=== PATIENT | male | born 1955 | race Caucasian/White ===

== ENCOUNTER → 2020-10-23 | Outpatient (CLI) | payer OTHER ==
[~2020-10-23] MED LIST: ACTOS45 MG PO; CLOBEX TP; FEXOFENADINE180 MG PO; FLUOXETINE20 MG PO; LIPITOR20 MG PO; LISINOPRIL20 MG PO; LOPRESSOR100 MG PO; METFORMIN500 MG PO; OMEGA 31000 MG PO; TRICOR145 MG PO; VICODIN 5/500 505 MG PO; VICTOZA6 MG/ML PO; [UNRECOGNIZED DRUG - OTHER] PO
[2020-10-23 13:49] LABS: ALBUMIN 3.3 gm/dl (3.1-4.5); BUN 32 mg/dl (7-24); CHLORIDE 92 mmol/L (98-107); CREATININE 1.37 mg/dL (0.70-1.30); POTASSIUM 4.5 mmol/L (3.5-5.1); SODIUM 129 mmol/L (136-145)
== END | disposition home or self-care (01) ==
LOC: LAB 13:14
PROVIDERS: ATTEND Internal Medicine
DX: E87.1 Hypo-osmolality and hyponatremia (principal)

== ENCOUNTER → 2022-01-15 | Outpatient (CLI) | payer MEDICARE ==
[~2022-01-15] MED LIST changes: +AMARYL4 MG PO; +ASPIRIN CHEWABL81 MG PO; +FLUOXETINE HCL40 MG PO; +LISINOPRIL-HCT1 EACH PO; -LOPRESSOR100 MG PO; +LOPRESSOR50 M1 PO; +METFORMIN HYD1000 MG PO; +NORVASC10 MG PO; +OMEPRAZOLE20 M2 PO; +XARELTO20 M1 PO
== END | disposition home or self-care (01) ==
LOC: COVID19 15:03
PROVIDERS: ATTEND Family Medicine
DX: Z20.822 Contact with and (suspected) exposure to COVID-19 (principal)

== ENCOUNTER 2022-01-17 05:09 | Inpatient (IN) | payer MEDICARE ==
[2022-01-17] VITALS (10 sets, daily range): BP systolic 126–179; BP diastolic 43–89
[~2022-01-17] VITALS: Ht 180.3 cm; Wt 176.0 kg
[~2022-01-17 05:09] MED LIST changes: -AMARYL4 MG PO; -ASPIRIN CHEWABL81 MG PO; -FLUOXETINE HCL40 MG PO; -LISINOPRIL-HCT1 EACH PO; -METFORMIN HYD1000 MG PO; -NORVASC10 MG PO; -OMEPRAZOLE20 M2 PO; -XARELTO20 M1 PO
[2022-01-17 05:56] LABS: BASO % 0.2 % (0.0-1.0); HEMATOCRIT 41.4 % (42.0-52.0); LYMPH # 0.3 10*3/uL (1.3-4.4); LYMPH % 3.9 % (27.0-41.0); MEAN CELL VOLUME 94.7 fl (80.0-94.0); MEAN CORPUSCULAR HGB 32.5 pg (27.0-31.0); MEAN CORPUSCULAR HGB CONC 34.3 g/dl (33.0-37.0); MEAN PLATELET VOLUME 10.9 fl (9.6-12.3); MONO # 0.6 10*3/uL (0.1-1.0); MONO % 7.3 % (3.0-9.0); NEUT # 7.3 10*3/uL (2.3-7.9); NEUT % 87.2 % (47.0-73.0); PLATELET COUNT AUTOMATED 191 10*3/uL (130-400); RED BLOOD COUNT 4.37 10*6/uL (4.50-5.90); WHITE BLOOD COUNT 8.4 10*3/uL (4.8-10.8)
[2022-01-17 06:00] LABS: ALKALINE PHOSPHATASE 108 U/L (45-117); BUN 9 mg/dl (7-24); CHLORIDE 97 mmol/L (98-107); CREATININE 1.31 mg/dL (0.70-1.30); LIPASE 161 U/L (73-393); SGOT/AST 52 IU/L (3-35); SGPT/ALT 109 U/L (12-78); SODIUM 130 mmol/L (136-145); TOTAL PROTEIN 7.6 gm/dL (6.4-8.2)
[2022-01-17 06:04] LABS: ETHYL ALCOHOL < 3.0 mg/dl (<3)
[2022-01-17 06:21] LABS: INTERNATIONAL NORM RATIO 1.1 (2.0-3.5)
[2022-01-17] MEDS ORDERED: OMEPRAZOLE20 M2 PO (06:28)
[2022-01-17] MEDS ORDERED: FLUOXETINE HCL40 MG PO (06:29)
[2022-01-17] MEDS ORDERED: NORVASC10 MG PO (06:29)
[2022-01-17] MEDS ORDERED: AMARYL4 MG PO (06:30)
[2022-01-17] MEDS ORDERED: ASPIRIN CHEWABL81 MG PO (06:30)
[2022-01-17] MEDS ORDERED: LISINOPRIL-HCT1 EACH PO (06:31)
[2022-01-17] MEDS ORDERED: METFORMIN HYD1000 MG PO (06:31)
[2022-01-17 07:28] LABS: CPK 246 U/L (39-308)
[2022-01-17 08:10] LABS: BILIRUBIN Negative (Negative); BLOOD 2+ (Negative); CLARITY Clear (Clear); COLOR Yellow (Yellow); GLUCOSE 2+ (Negative); KETONE 1+ (Negative); LEUKO ESTERASE Negative (Negative); NITRITE Negative (Negative); PH 6.5 (4.5-8.0); SPECIFIC GRAVITY 1.015 (1.001-1.030)
[2022-01-17 08:18] LABS: URINE AMPHETAMINES < 1000 (1000ng/ml); URINE BARBITURATES < 200 (200ng/ml); URINE BENZODIAZEPINES < 200 (200ng/ml); URINE CANNABINOIDS (THC) > 50 (50ng/ml); URINE COCAINE < 300 (300ng/ml); URINE METHADONE < 300 (300ng/ml); URINE OPIATES < 300 (300ng/ml)
[2022-01-17 08:22] LABS: HYALINE CAST 0-2; WBC 0-2 wbc/hpf (0-5); YEAST TRACE
[2022-01-17 08:23] LABS: URINE PHENCYCLIDINE < 25 (25ng/ml)
[2022-01-17 09:03] LABS: ABG BASE EXCESS 1.7 mmol/L (-2.0-2.0); ARTERIAL BLOOD GAS PH 7.397 (7.35-7.45); ARTERIAL BLOOD GAS PO2 234.7 (80-90)
[2022-01-17 17:34] LABS: BILIRUBIN Negative (Negative); BLOOD Negative (Negative); CLARITY Clear (Clear); COLOR Dark Yellow (Yellow); GLUCOSE Negative (Negative); KETONE 1+ (Negative); LEUKO ESTERASE Negative (Negative); NITRITE Negative (Negative); SPECIFIC GRAVITY >= 1.030 (1.001-1.030)
[2022-01-17 17:47] LABS: RBC 0-2 rbc/hpf (0-2); WBC 0-2 wbc/hpf (0-5)
[2022-01-17 18:23] LABS: BUN 9 mg/dl (7-24); CHLORIDE 98 mmol/L (98-107); CREATININE 1.05 mg/dL (0.70-1.30); POTASSIUM 3.1 mmol/L (3.5-5.1); SODIUM 135 mmol/L (136-145)
[2022-01-17 21:41] LABS: ALKALINE PHOSPHATASE 76 U/L (45-117); BUN 10 mg/dl (7-24); CHLORIDE 104 mmol/L (98-107); CREATININE 1.12 mg/dL (0.70-1.30); LIPASE 103 U/L (73-393); POTASSIUM 2.8 mmol/L (3.5-5.1); SGOT/AST 39 IU/L (3-35); SGPT/ALT 72 U/L (12-78); SODIUM 138 mmol/L (136-145)
[2022-01-18] VITALS (14 sets, daily range): BP systolic 89–161; BP diastolic 49–96
[2022-01-18 02:18] LABS: ALKALINE PHOSPHATASE 75 U/L (45-117); BUN 10 mg/dl (7-24); CHLORIDE 106 mmol/L (98-107); CREATININE 1.16 mg/dL (0.70-1.30); SGOT/AST 43 IU/L (3-35); SGPT/ALT 68 U/L (12-78); SODIUM 136 mmol/L (136-145)
[2022-01-18 02:19] LABS: POTASSIUM 4.1 mmol/L (3.5-5.1)
[2022-01-18 06:20] LABS: BASO % 0.5 % (0.0-1.0); EOS # 0.2 10*3/uL (0.0-0.4); HEMATOCRIT 35.9 % (42.0-52.0); LYMPH # 0.5 10*3/uL (1.3-4.4); MEAN CELL VOLUME 97.6 fl (80.0-94.0); MEAN CORPUSCULAR HGB 32.3 pg (27.0-31.0); MEAN CORPUSCULAR HGB CONC 33.1 g/dl (33.0-37.0); MEAN PLATELET VOLUME 11.1 fl (9.6-12.3); MONO # 0.6 10*3/uL (0.1-1.0); MONO % 9.4 % (3.0-9.0); NEUT # 4.7 10*3/uL (2.3-7.9); NEUT % 78.9 % (47.0-73.0); PLATELET COUNT AUTOMATED 139 10*3/uL (130-400); RED BLOOD COUNT 3.68 10*6/uL (4.50-5.90); RED CELL DISTRI WIDTH 12.4 % (0-14.5)
[2022-01-18 06:29] LABS: BUN 11 mg/dl (7-24); CHLORIDE 106 mmol/L (98-107); POTASSIUM 3.2 mmol/L (3.5-5.1); SODIUM 137 mmol/L (136-145)
[2022-01-18 06:39] LABS: ALKALINE PHOSPHATASE 69 U/L (45-117); CHOLESTEROL 110 mg/dL (<200); CREATININE 1.12 mg/dL (0.70-1.30); FREE T4 1.05 ng/dl (0.76-1.46); LDL CHOLESTEROL 53 mg/dL (9-159); SGOT/AST 37 IU/L (3-35); SGPT/ALT 63 U/L (12-78); THYROID STIM HORMONE (HS) 0.812 uIU/ml (0.358-4.75); TOTAL PROTEIN 5.6 gm/dL (6.4-8.2); TRIGLYCERIDES 115 mg/dl (<150)
[2022-01-18 11:46] LABS: ABG BASE EXCESS -4.4 mmol/L (-2.0-2.0); ARTERIAL BLOOD GAS PH 7.358 (7.35-7.45); ARTERIAL BLOOD GAS PO2 125.4 (80-90)
[2022-01-18] MEDS ORDERED: XARELTO20 M1 PO (17:52)
== END 2022-01-18 23:53 | disposition short-term general hospital (02) | DRG 871 ==
LOC: ED 05:09 → EDHOLD 06:28 → ICCU 08:00
PROVIDERS: Emergency Medicine; Internal Medicine; Student in an Organized Health Care Education/Training Program; ADMIT Family Medicine; ATTEND Family Medicine
PROC: 0BH17EZ Insertion of Endotracheal Airway into Trachea, Via Natural or Artificial Opening (ICD-10-PCS; principal; 2022-01-17)
PROC: 5A1945Z Respiratory Ventilation, 24-96 Consecutive Hours (ICD-10-PCS; 2022-01-17)
PROC: 02HV33Z Insertion of Infusion Device into Superior Vena Cava, Percutaneous Approach (ICD-10-PCS; 2022-01-17)
PROC: B548ZZA Ultrasonography of Superior Vena Cava, Guidance (ICD-10-PCS; 2022-01-17)
DX: A41.9 Sepsis, unspecified organism (principal); G93.41 Metabolic encephalopathy; N17.0 Acute kidney failure with tubular necrosis; G04.90 Encephalitis and encephalomyelitis, unspecified; J18.9 Pneumonia, unspecified organism; J96.00 Acute respiratory failure, unspecified whether with hypoxia or hypercapnia; F10.231 Alcohol dependence with withdrawal delirium; E87.1 Hypo-osmolality and hyponatremia; J98.11 Atelectasis; E78.5 Hyperlipidemia, unspecified; K21.9 Gastro-esophageal reflux disease without esophagitis; E87.6 Hypokalemia; E11.65 Type 2 diabetes mellitus with hyperglycemia; I50.9 Heart failure, unspecified; I11.0 Hypertensive heart disease with heart failure; J43.9 Emphysema, unspecified; K76.0 Fatty (change of) liver, not elsewhere classified; I48.91 Unspecified atrial fibrillation; Z90.49 Acquired absence of other specified parts of digestive tract; Z79.82 Long term (current) use of aspirin; Z79.899 Other long term (current) drug therapy

== ENCOUNTER 2023-12-11 17:43 | Emergency (ER) | payer MEDICARE ==
[~2023-12-11] VITALS: Wt 133.8 kg
[~2023-12-11 17:43] MED LIST changes: +AMARYL4 MG PO; +ASPIRIN CHEWABL81 MG PO; +FLUOXETINE HCL40 MG PO; +LISINOPRIL-HCT1 EACH PO; +METFORMIN HYD1000 MG PO; +NORVASC10 MG PO; +OMEPRAZOLE20 M2 PO; +XARELTO20 M1 PO
== END 2023-12-11 20:00 ==
LOC: ED 17:43
DX: I46.9 Cardiac arrest, cause unspecified (principal); Z79.899 Other long term (current) drug therapy; Z79.82 Long term (current) use of aspirin; Z98.890 Other specified postprocedural states; Z90.49 Acquired absence of other specified parts of digestive tract